=== PATIENT | female | born 1995 | race Caucasian/White ===

== ENCOUNTER 2018-06-09 23:20 | Emergency (ER) | payer MEDICAID ==
[~2018-06-09] VITALS: Ht 175.3 cm; Wt 100.0 kg
[~2018-06-09 23:20] MED LIST: CEFTIN500 MG PO; DEPO MEDROL40 MG/ML IJ; FLAGYL500 MG PO; LATUDA80 MG PO; MELATONIN5 M1 SL; MOTRIN 800800 MG/TAB PO; NORCO 325 MG-51 TAB PO; PERCOCET 325 MG1 TA2 PO; PREVACID 30MG30 M1 PO; RITALIN 20M20 MG/TAB PO; VYVANSE70 MG PO; ZOFRAN 4MG T4 MG/TAB PO
[2018-06-09 23:25] VITALS: BP 137/96; TEMP 97.3
[2018-06-10] MEDS ORDERED: CRUTCHES MC (00:25)
[2018-06-10 00:45] VITALS: PULSE 89
== END 2018-06-10 00:45 | disposition home or self-care (01) ==
LOC: COL.ER 23:20
DX: M25.551 Pain in right hip (principal); F32.9 Major depressive disorder, single episode, unspecified; F41.9 Anxiety disorder, unspecified; Z90.89 Acquired absence of other organs; Z88.8 Allergy status to other drugs, medicaments and biological substances; Z87.891 Personal history of nicotine dependence; Z87.828 Personal history of other (healed) physical injury and trauma
CPT/HCPCS: J1885; L1846

== ENCOUNTER 2018-06-15 23:43 | Emergency (ER) | payer MEDICAID ==
[~2018-06-15] VITALS: Ht 172.7 cm; Wt 131.4 kg
[~2018-06-15 23:43] MED LIST changes: +CRUTCHES MC
[2018-06-15 23:49] VITALS: BP 120/77; TEMP 98.3
[2018-06-16] MEDS ORDERED: PERCOCET 325 MG1 TA2 PO (00:56)
[2018-06-16 01:27] VITALS: PULSE 86
== END 2018-06-16 01:27 | disposition home or self-care (01) ==
LOC: COL.ER 23:43
DX: M25.561 Pain in right knee (principal); J45.909 Unspecified asthma, uncomplicated; F43.10 Post-traumatic stress disorder, unspecified; F17.210 Nicotine dependence, cigarettes, uncomplicated

== ENCOUNTER 2018-07-07 15:21 | Emergency (ER) | payer MEDICAID ==
[~2018-07-07] VITALS: Ht 175.3 cm; Wt 129.5 kg
[2018-07-07 15:31] VITALS: TEMP 99.4
[2018-07-07 15:55] LABS: COLLECTION METHOD CLEAN CATCH
[2018-07-07 16:04] LABS: MUCOUS Present /lpf; PH 7 (5-8); SQUAMOUS EPITHELIAL 0-2 /hpf; URINE APPEARANCE Clear; URINE BACTERIA None Seen /hpf; URINE BILIRUBIN Negative (NEGATIVE); URINE BLOOD Negative (NEGATIVE); URINE COLOR Straw; URINE GLUCOSE Negative (NEGATIVE); URINE KETONE Negative (NEGATIVE); URINE LEUKOCYTE ESTERASE Negative (NEGATIVE); URINE NITRATE Negative (NEGATIVE); URINE PROTEIN(semi-quant) Negative (NEGATIVE); URINE RBC 0-2 /hpf; URINE UROBILINOGEN Negative (NEGATIVE); URINE WBC 0-2 /hpf
[2018-07-07 16:10] LABS: BASO % 0.4 % (0.0-2.0); EOS # 0.1 (0.0-0.7); EOS % 0.8 % (0-4.0); GRAN # 5.6 (1.4-6.5); HEMATOCRIT 46.4 % (37.0-47.0); HEMOGLOBIN 15.2 g/dl (12.5-16.0); LYMPH # 2.5 (1.2-3.4); LYMPH % 27.3 % (20.0-51.0); MEAN CELL VOLUME 90 fl (80.0-100.0); MEAN CORPUSCULAR HEMOGLOBIN 30 pg (27.0-31.0); MEAN CORPUSCULAR HGB CONC 33 g/dl (33.0-37.0); MEAN PLATELET VOLUME 11.1 fl (7.4-10.4); MONO % 10.3 % (1.7-9.3); PLATELET COUNT 258 K/mm3 (130-400); RED BLOOD COUNT 5.13 M/mm3 (4.10-5.30); REDCELL DISTRIBUTION WIDTH-CV 12.6 % (11.5-14.5)
[2018-07-07 16:11] LABS: ALBUMIN 4.4 gm/dL (3.5-5.0); BILIRUBIN,TOTAL 0.5 mg/dL (0.0-1.0); C-REACTIVE PROTEIN 0.7 mg/dL (0.0-0.9); CALCIUM 9.8 mg/dL (8.4-10.2); CREATININE, serum 0.82 (0.52-1.25); POTASSIUM 4.3 mmol/L (3.4-5.0)
[2018-07-07] MEDS ORDERED: ZOFRAN 4MG T4 MG/TAB PO (16:35)
[2018-07-07 17:02] VITALS: BP 114/67; PULSE 77
== END 2018-07-07 17:03 | disposition home or self-care (01) ==
LOC: COL.ER 15:21
PROVIDERS: Emergency Medicine
DX: R19.7 Diarrhea, unspecified (principal); R11.10 Vomiting, unspecified; R10.9 Unspecified abdominal pain; Z90.49 Acquired absence of other specified parts of digestive tract
CPT/HCPCS: J2405; J7030

== ENCOUNTER 2018-07-29 14:12 | Emergency (ER) | payer MEDICAID ==
[~2018-07-29] VITALS: Ht 175.3 cm; Wt 127.3 kg
[2018-07-29 14:22] VITALS: TEMP 97.8
[2018-07-29] MEDS ORDERED: DEPO-PROVER150 MG/M1 IM (14:44)
[2018-07-29 17:10] VITALS: BP 104/70; PULSE 71
== END 2018-07-29 17:10 | disposition home or self-care (01) ==
LOC: COL.ER 14:12
DX: S06.0X0A Concussion without loss of consciousness, initial encounter (principal); G43.909 Migraine, unspecified, not intractable, without status migrainosus; F43.10 Post-traumatic stress disorder, unspecified; F41.9 Anxiety disorder, unspecified; F12.90 Cannabis use, unspecified, uncomplicated; R40.2412 Glasgow coma scale score 13-15, at arrival to emergency department; W18.39XA Other fall on same level, initial encounter; W22.8XXA Striking against or struck by other objects, initial encounter; Y92.009 Unspecified place in unspecified non-institutional (private) residence as the place of occurrence of the external cause
CPT/HCPCS: J1630; J1885; J2405

== ENCOUNTER 2018-07-31 10:15 | Emergency (ER) | payer MEDICAID ==
[~2018-07-31] VITALS: Ht 177.8 cm; Wt 127.8 kg
[~2018-07-31 10:15] MED LIST changes: +DEPO-PROVER150 MG/M1 IM
[2018-07-31 10:17] VITALS: TEMP 98.1
[2018-07-31 11:40] VITALS: BP 115/63; PULSE 89
== END 2018-07-31 11:41 | disposition home or self-care (01) ==
LOC: COL.ER 10:15
DX: G43.909 Migraine, unspecified, not intractable, without status migrainosus (principal)
CPT/HCPCS: J2550; J3030

== ENCOUNTER 2018-08-03 17:11 | Emergency (ER) | payer MEDICAID ==
[~2018-08-03] VITALS: Ht 177.8 cm; Wt 127.3 kg
[2018-08-03 17:22] VITALS: BP 124/74; TEMP 98.7
[2018-08-03 18:44] LABS: BASO % 0.4 % (0.0-2.0); EOS # 0.1 (0.0-0.7); EOS % 1.2 % (0-4.0); GRAN # 5.1 (1.4-6.5); GRAN % 61.8 % (42.2-75.2); HEMATOCRIT 42.6 % (37.0-47.0); LYMPH # 2.2 (1.2-3.4); LYMPH % 27.1 % (20.0-51.0); MEAN CELL VOLUME 91 fl (80.0-100.0); MEAN CORPUSCULAR HEMOGLOBIN 30 pg (27.0-31.0); MEAN CORPUSCULAR HGB CONC 33 g/dl (33.0-37.0); MEAN PLATELET VOLUME 11.2 fl (7.4-10.4); MONO # 0.8 (0.1-0.6); MONO % 9.4 % (1.7-9.3); PLATELET COUNT 220 K/mm3 (130-400); RED BLOOD COUNT 4.69 M/mm3 (4.10-5.30); REDCELL DISTRIBUTION WIDTH-CV 12.4 % (11.5-14.5)
[2018-08-03 18:49] LABS: COLLECTION METHOD CLEAN CATCH
[2018-08-03 18:56] LABS: ACETAMINOPHEN < 10 ug/mL (10-30); ALANINE AMINOTRANSFERASE 22 U/L (9-52); ALBUMIN 4.1 gm/dL (3.5-5.0); ALCOHOL(ethanol),MEDICAL < 10 mg/dL; ALKALINE PHOSPHATASE 93 U/L (50-136); ANION GAP 10 mmol/L (7-16); AST,SGOT 19 U/L (15-37); BILIRUBIN,TOTAL 0.3 mg/dL (0.0-1.0); BLOOD UREA NITROGEN 8 mg/dL (7-17); CALCIUM 9.1 mg/dL (8.4-10.2); CARBON DIOXIDE 25 mmol/L (22-30); CHLORIDE 108 mmol/L (98-107); CREATININE, serum 0.84 (0.52-1.25); GLUCOSE 89 mg/dL (74-106); SALICYLATE < 1.0 mg/dL; SODIUM 143 mmol/L (137-145); TOTAL PROTEIN 7.3 gm/dL (6.4-8.2)
[2018-08-03 18:59] LABS: MUCOUS Present /lpf; PH 7 (5-8); SQUAMOUS EPITHELIAL 0-2 /hpf; URINE APPEARANCE Clear; URINE BACTERIA None Seen /hpf; URINE BILIRUBIN Negative (NEGATIVE); URINE BLOOD Negative (NEGATIVE); URINE COLOR Straw; URINE GLUCOSE Negative (NEGATIVE); URINE KETONE Negative (NEGATIVE); URINE LEUKOCYTE ESTERASE Trace (NEGATIVE); URINE NITRATE Negative (NEGATIVE); URINE PROTEIN(semi-quant) Negative (NEGATIVE); URINE RBC 0-2 /hpf; URINE UROBILINOGEN Negative (NEGATIVE)
[2018-08-03 19:09] LABS: TRICYCLIC ANTIDEPRESS URINE NEGATIVE
[2018-08-03 19:26] LABS: TSH w REFLEX 0.976 uIU/mL (0.465-4.680)
[2018-08-03 19:45] VITALS: PULSE 95
== END 2018-08-03 19:45 | disposition home or self-care (01) ==
LOC: COL.ER 17:11
PROVIDERS: Nurse Practitioner
DX: F32.9 Major depressive disorder, single episode, unspecified (principal); F41.9 Anxiety disorder, unspecified; F12.90 Cannabis use, unspecified, uncomplicated; J45.909 Unspecified asthma, uncomplicated

== ENCOUNTER 2018-08-23 23:44 | Emergency (ER) | payer MEDICAID ==
[~2018-08-23] VITALS: Ht 175.3 cm; Wt 127.3 kg
[2018-08-23 23:57] VITALS: BP 123/72; TEMP 98.4
[2018-08-24 01:35] VITALS: PULSE 88
== END 2018-08-24 01:35 | disposition home or self-care (01) ==
LOC: COL.ER 23:44
DX: J06.9 Acute upper respiratory infection, unspecified (principal); J45.909 Unspecified asthma, uncomplicated; F41.9 Anxiety disorder, unspecified; F43.10 Post-traumatic stress disorder, unspecified; F12.10 Cannabis abuse, uncomplicated; Z90.89 Acquired absence of other organs; Z88.8 Allergy status to other drugs, medicaments and biological substances

== ENCOUNTER 2018-09-15 11:22 | Emergency (ER) | payer MEDICAID ==
[~2018-09-15] VITALS: Ht 172.7 cm; Wt 126.4 kg
[2018-09-15 11:24] VITALS: TEMP 97.7
[2018-09-15] MEDS ORDERED: AMOXICILLIN875 MG PO (11:40)
[2018-09-15] MEDS ORDERED: CORTISPORIN OTI10 ML OT (11:40)
[2018-09-15 11:42] VITALS: BP 149/92; PULSE 76
== END 2018-09-15 11:51 | disposition home or self-care (01) ==
LOC: COL.ER 11:22
DX: H60.502 Unspecified acute noninfective otitis externa, left ear (principal); H66.93 Otitis media, unspecified, bilateral; F12.90 Cannabis use, unspecified, uncomplicated; F41.9 Anxiety disorder, unspecified; F43.10 Post-traumatic stress disorder, unspecified; Z87.891 Personal history of nicotine dependence

== ENCOUNTER 2018-09-17 01:16 | Emergency (ER) | payer MEDICAID ==
[~2018-09-17] VITALS: Ht 175.3 cm; Wt 126.8 kg
[~2018-09-17 01:16] MED LIST changes: +AMOXICILLIN875 MG PO; +CORTISPORIN OTI10 ML OT
[2018-09-17 01:25] VITALS: BP 128/77; TEMP 98.3
[2018-09-17 02:12] VITALS: PULSE 91
== END 2018-09-17 02:12 | disposition home or self-care (01) ==
LOC: COL.ER 01:16
DX: H60.393 Other infective otitis externa, bilateral (principal)
CPT/HCPCS: J1885; J8540

== ENCOUNTER 2018-09-27 17:18 | Emergency (ER) | payer MEDICAID ==
[~2018-09-27] VITALS: Ht 175.3 cm; Wt 128.2 kg
[2018-09-27 17:30] VITALS: BP 137/88
[2018-09-27] MEDS ORDERED: CIPRODEX OT (17:47)
[2018-09-27 18:00] VITALS: PULSE 93; TEMP 98
[2018-09-28] MEDS ORDERED: MOTRIN 800800 MG/TAB PO (06:31)
[2018-09-28] MEDS ORDERED: NORCO 325 MG-51 TAB PO (07:12)
[2018-09-28] MEDS ORDERED: CIPRO 500MG TA500 MG PO (07:12)
== END 2018-09-27 18:01 | disposition home or self-care (01) ==
LOC: COL.ER 17:18
DX: H66.93 Otitis media, unspecified, bilateral (principal)

== ENCOUNTER 2018-09-28 06:01 | Emergency (ER) | payer MEDICAID ==
[~2018-09-28] VITALS: Ht 175.3 cm; Wt 128.2 kg
[~2018-09-28 06:01] MED LIST changes: +CIPRODEX OT
[2018-09-28 06:08] VITALS: BP 120/79
[2018-09-28] MEDS ORDERED: MOTRIN 800800 MG/TAB PO (06:31)
[2018-09-28] MEDS ORDERED: NORCO 325 MG-51 TAB PO (07:12)
[2018-09-28] MEDS ORDERED: CIPRO 500MG TA500 MG PO (07:12)
[2018-09-28 07:53] VITALS: PULSE 66; TEMP 97.5
== END 2018-09-28 07:53 | disposition home or self-care (01) ==
LOC: COL.ER 06:01
DX: H60.93 Unspecified otitis externa, bilateral (principal)

== ENCOUNTER 2018-11-30 21:13 | Emergency (ER) | payer MEDICAID ==
[~2018-11-30] VITALS: Ht 175.3 cm; Wt 123.6 kg
[~2018-11-30 21:13] MED LIST changes: +CIPRO 500MG TA500 MG PO
[2018-11-30 21:23] VITALS: BP 109/73; TEMP 98.6
[2018-11-30] MEDS ORDERED: TUMS500 MG (21:36)
[2018-11-30] MEDS ORDERED: IBU600 MG PO (21:36)
[2018-11-30 22:06] LABS: BASO # 0.1 (0.0-0.2); BASO % 0.6 % (0.0-2.0); EOS # 0.1 (0.0-0.7); EOS % 1.1 % (0-4.0); GRAN % 54.5 % (42.2-75.2); HEMATOCRIT 44.1 % (37.0-47.0); HEMOGLOBIN 14.7 g/dl (12.5-16.0); LYMPH # 3.1 (1.2-3.4); LYMPH % 34.3 % (20.0-51.0); MEAN CELL VOLUME 90 fl (80.0-100.0); MEAN CORPUSCULAR HEMOGLOBIN 30 pg (27.0-31.0); MEAN CORPUSCULAR HGB CONC 33 g/dl (33.0-37.0); MEAN PLATELET VOLUME 10.8 fl (7.4-10.4); MONO # 0.8 (0.1-0.6); MONO % 9.2 % (1.7-9.3); PLATELET COUNT 254 K/mm3 (130-400); RED BLOOD COUNT 4.88 M/mm3 (4.10-5.30); REDCELL DISTRIBUTION WIDTH-CV 12.5 % (11.5-14.5)
[2018-11-30 22:16] LABS: ALBUMIN 4.6 gm/dL (3.5-5.0); BILIRUBIN,TOTAL 0.4 mg/dL (0.0-1.0); CALCIUM 9.3 mg/dL (8.4-10.2); CREATININE, serum 0.77 (0.52-1.25); POTASSIUM 3.5 mmol/L (3.4-5.0)
[2018-11-30 23:20] VITALS: PULSE 92
== END 2018-11-30 23:29 | disposition home or self-care (01) ==
LOC: COL.ER 21:13
PROVIDERS: Emergency Medicine
DX: A05.9 Bacterial foodborne intoxication, unspecified (principal)
CPT/HCPCS: J0780; J7030

== ENCOUNTER 2018-12-10 02:31 | Emergency (ER) | payer MEDICAID ==
[~2018-12-10] VITALS: Wt 122.7 kg
[~2018-12-10 02:31] MED LIST changes: +IBU600 MG PO; +TUMS500 MG
[2018-12-10 02:42] VITALS: TEMP 98.6
[2018-12-10] MEDS ORDERED: ZOFRAN ODT4 MG PO (03:51)
[2018-12-10] MEDS ORDERED: PROTONIX 40MG T40 MG PO (03:51)
[2018-12-10] MEDS ORDERED: CARAFATE 1GM1 G PO (03:51)
[2018-12-10 04:34] VITALS: BP 125/87; PULSE 87
== END 2018-12-10 04:31 | disposition home or self-care (01) ==
LOC: COL.ER 02:31
DX: K22.6 Gastro-esophageal laceration-hemorrhage syndrome (principal); F43.10 Post-traumatic stress disorder, unspecified; F17.210 Nicotine dependence, cigarettes, uncomplicated; Z90.89 Acquired absence of other organs

== ENCOUNTER 2018-12-30 15:07 | Emergency (ER) | payer MEDICAID ==
[~2018-12-30] VITALS: Ht 175.3 cm; Wt 113.6 kg
[~2018-12-30 15:07] MED LIST changes: +CARAFATE 1GM1 G PO; +PROTONIX 40MG T40 MG PO; +ZOFRAN ODT4 MG PO
[2018-12-30 15:09] VITALS: BP 118/80; TEMP 97.6
[2018-12-30 16:06] LABS: STREP SCREEN NEGATIVE
[2018-12-30] MEDS ORDERED: ZITHROMAX 250M250 MG PO (16:14)
[2018-12-30] MEDS ORDERED: NEB MC (16:14)
[2018-12-30] MEDS ORDERED: PREDNISONE20 MG PO (16:14)
[2018-12-30] MEDS ORDERED: IPRATROPIUM BROM3 M1 IH (16:14)
[2018-12-30 16:29] VITALS: PULSE 98
== END 2018-12-30 16:30 | disposition home or self-care (01) ==
LOC: COL.ER 15:07
PROVIDERS: Emergency Medicine
DX: J45.909 Unspecified asthma, uncomplicated (principal); F17.210 Nicotine dependence, cigarettes, uncomplicated
CPT/HCPCS: J7512

== ENCOUNTER 2019-01-17 22:16 | Emergency (ER) | payer MEDICAID ==
[~2019-01-17] VITALS: Ht 175.3 cm; Wt 118.0 kg
[~2019-01-17 22:16] MED LIST changes: +IPRATROPIUM BROM3 M1 IH; +NEB MC; +PREDNISONE20 MG PO; +ZITHROMAX 250M250 MG PO
[2019-01-17 22:27] VITALS: TEMP 98.1
[2019-01-18 00:34] LABS: BASO # 0.1 (0.0-0.2); BASO % 0.5 % (0.0-2.0); EOS # 0.2 (0.0-0.7); EOS % 1.5 % (0-4.0); GRAN # 5.4 (1.4-6.5); GRAN % 53.1 % (42.2-75.2); HEMATOCRIT 41.1 % (37.0-47.0); HEMOGLOBIN 13.5 g/dl (12.5-16.0); LYMPH # 3.6 (1.2-3.4); LYMPH % 35.2 % (20.0-51.0); MEAN CELL VOLUME 92 fl (80.0-100.0); MEAN CORPUSCULAR HEMOGLOBIN 30 pg (27.0-31.0); MEAN CORPUSCULAR HGB CONC 33 g/dl (33.0-37.0); MEAN PLATELET VOLUME 10.5 fl (7.4-10.4); MONO % 9.3 % (1.7-9.3); PLATELET COUNT 235 K/mm3 (130-400); RED BLOOD COUNT 4.45 M/mm3 (4.10-5.30); REDCELL DISTRIBUTION WIDTH-CV 12.6 % (11.5-14.5)
[2019-01-18 00:45] LABS: ACETAMINOPHEN < 10 ug/mL (10-30); ALANINE AMINOTRANSFERASE 22 U/L (9-52); ALBUMIN 3.9 gm/dL (3.5-5.0); ALKALINE PHOSPHATASE 91 U/L (50-136); ANION GAP 7 mmol/L (7-16); AST,SGOT 12 U/L (15-37); BILIRUBIN,TOTAL 0.1 mg/dL (0.0-1.0); BLOOD UREA NITROGEN 14 mg/dL (7-17); CALCIUM 8.8 mg/dL (8.4-10.2); CARBON DIOXIDE 26 mmol/L (22-30); CHLORIDE 107 mmol/L (98-107); CREATININE, serum 0.89 (0.52-1.25); GLUCOSE 101 mg/dL (74-106); POTASSIUM 4.2 mmol/L (3.4-5.0); SALICYLATE < 1.0 mg/dL; SODIUM 139 mmol/L (137-145); TOTAL PROTEIN 6.7 gm/dL (6.4-8.2)
[2019-01-18 00:55] LABS: COLLECTION METHOD CLEAN CATCH
[2019-01-18 01:01] LABS: MUCOUS Present /lpf; PH 7 (5-8); SQUAMOUS EPITHELIAL 0-2 /hpf; URINE APPEARANCE Clear; URINE BACTERIA None Seen /hpf; URINE BILIRUBIN Negative (NEGATIVE); URINE BLOOD Negative (NEGATIVE); URINE COLOR Yellow; URINE GLUCOSE Negative (NEGATIVE); URINE KETONE Negative (NEGATIVE); URINE LEUKOCYTE ESTERASE Negative (NEGATIVE); URINE NITRATE Negative (NEGATIVE); URINE PROTEIN(semi-quant) Negative (NEGATIVE); URINE RBC 0-2 /hpf; URINE UROBILINOGEN Negative (NEGATIVE)
[2019-01-18 01:08] LABS: TRICYCLIC ANTIDEPRESS URINE NEGATIVE
[2019-01-18 01:40] VITALS: BP 124/70; PULSE 81
== END 2019-01-18 01:40 | disposition home or self-care (01) ==
LOC: COL.ER 22:16
PROVIDERS: Nurse Practitioner
DX: F32.9 Major depressive disorder, single episode, unspecified (principal); F41.9 Anxiety disorder, unspecified; J45.909 Unspecified asthma, uncomplicated; F43.10 Post-traumatic stress disorder, unspecified; F17.210 Nicotine dependence, cigarettes, uncomplicated; Z90.49 Acquired absence of other specified parts of digestive tract; Z90.89 Acquired absence of other organs

== ENCOUNTER 2019-03-17 16:00 | Emergency (ER) | payer MEDICAID ==
[~2019-03-17] VITALS: Ht 175.3 cm; Wt 113.6 kg
[2019-03-17 16:05] VITALS: BP 120/74; PULSE 103; TEMP 97.6
[2019-03-17] MEDS ORDERED: NORCO 325 MG-51 TAB PO (16:54)
== END 2019-03-17 17:13 | disposition home or self-care (01) ==
LOC: COL.ER 16:00
DX: S93.401A Sprain of unspecified ligament of right ankle, initial encounter (principal); S83.91XA Sprain of unspecified site of right knee, initial encounter; J45.909 Unspecified asthma, uncomplicated; F32.9 Major depressive disorder, single episode, unspecified; X50.1XXA Overexertion from prolonged static or awkward postures, initial encounter; Y92.009 Unspecified place in unspecified non-institutional (private) residence as the place of occurrence of the external cause

== ENCOUNTER 2019-09-08 14:16 | Emergency (ER) | payer MEDICAID ==
[~2019-09-08] VITALS: Ht 177.8 cm; Wt 135.0 kg
[~2019-09-08 14:16] MED LIST changes: +ADDERALL30 MG PO; +CIPRO 500M500 MG/5 M PO; +DOXYCYCLINE 10100 MG PO; +ELIMITE TOP
[2019-09-08 14:24] VITALS: TEMP 98.3
[2019-09-08] MEDS ORDERED: LATUDA40 MG PO (14:24)
[2019-09-08 15:03] LABS: BASO # 0.1 (0.0-0.2); BASO % 0.5 % (0.0-2.0); EOS # 0.1 (0.0-0.7); EOS % 0.6 % (0-4.0); GRAN # 6.4 (1.4-6.5); GRAN % 62.5 % (42.2-75.2); HEMATOCRIT 44.2 % (37.0-47.0); HEMOGLOBIN 14.8 g/dl (12.5-16.0); LYMPH # 2.9 (1.2-3.4); LYMPH % 27.8 % (20.0-51.0); MEAN CELL VOLUME 89 fl (80.0-100.0); MEAN CORPUSCULAR HEMOGLOBIN 30 pg (27.0-31.0); MEAN CORPUSCULAR HGB CONC 34 g/dl (33.0-37.0); MEAN PLATELET VOLUME 10.6 fl (7.4-10.4); MONO # 0.9 (0.1-0.6); MONO % 8.3 % (1.7-9.3); PLATELET COUNT 241 K/mm3 (130-400); RED BLOOD COUNT 4.98 M/mm3 (4.10-5.30); REDCELL DISTRIBUTION WIDTH-CV 12.1 % (11.5-14.5)
[2019-09-08 15:12] LABS: ALANINE AMINOTRANSFERASE 24 U/L (4-34); ALBUMIN 4.5 gm/dL (3.5-5.0); ALKALINE PHOSPHATASE 101 U/L (50-136); ANION GAP 8 mmol/L (7-16); AST,SGOT 18 U/L (15-37); BILIRUBIN,TOTAL 0.8 mg/dL (0.0-1.0); BLOOD UREA NITROGEN 12 mg/dL (7-17); CALCIUM 9.8 mg/dL (8.4-10.2); CARBON DIOXIDE 24 mmol/L (22-30); CHLORIDE 104 mmol/L (98-107); CREATININE, serum 0.77 (0.52-1.25); GLUCOSE 93 mg/dL (74-106); POTASSIUM 4.1 mmol/L (3.4-5.0); SODIUM 135 mmol/L (137-145); TOTAL PROTEIN 7.9 gm/dL (6.4-8.2)
[2019-09-08 15:16] LABS: ACETAMINOPHEN < 10 ug/mL (10-30); ALCOHOL(ethanol),MEDICAL < 10 mg/dL; SALICYLATE < 1.0 mg/dL
[2019-09-08 16:03] LABS: COLLECTION METHOD CLEAN CATCH
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
[2019-09-08 16:10] LABS: MUCOUS Present /lpf; PH 6 (5-8); SQUAMOUS EPITHELIAL 0-2 /hpf; URINE APPEARANCE Clear; URINE BACTERIA None Seen /hpf; URINE BILIRUBIN Negative (NEGATIVE); URINE BLOOD Negative (NEGATIVE); URINE COLOR Yellow; URINE GLUCOSE Negative (NEGATIVE); URINE KETONE 1+ (NEGATIVE); URINE LEUKOCYTE ESTERASE Negative (NEGATIVE); URINE NITRATE Negative (NEGATIVE); URINE PROTEIN(semi-quant) Negative (NEGATIVE); URINE RBC 0-2 /hpf; URINE UROBILINOGEN Negative (NEGATIVE)
[2019-09-08 16:20] LABS: TRICYCLIC ANTIDEPRESS URINE NEGATIVE
[2019-09-09 07:30] VITALS: BP 160/87; PULSE 92
== END 2019-09-09 07:30 ==
LOC: COL.ER 14:16
PROVIDERS: Physician Assistant
DX: R45.851 Suicidal ideations (principal); F32.9 Major depressive disorder, single episode, unspecified; T76.21XA Adult sexual abuse, suspected, initial encounter; F90.9 Attention-deficit hyperactivity disorder, unspecified type; F43.10 Post-traumatic stress disorder, unspecified; Z90.89 Acquired absence of other organs

== ENCOUNTER 2019-10-09 16:50 | Emergency (ER) | payer MEDICAID ==
[~2019-10-09] VITALS: Ht 175.3 cm; Wt 135.0 kg
[~2019-10-09 16:50] MED LIST changes: +LATUDA40 MG PO
[2019-10-09 16:59] VITALS: BP 115/81; PULSE 95
[2019-10-09 19:45] VITALS: TEMP 98.2
== END 2019-10-09 19:42 | disposition home or self-care (01) ==
LOC: COL.ER 16:50
DX: S62.609A Fracture of unspecified phalanx of unspecified finger, initial encounter for closed fracture (principal); F32.9 Major depressive disorder, single episode, unspecified; Z88.7 Allergy status to serum and vaccine; Z88.8 Allergy status to other drugs, medicaments and biological substances; Z90.49 Acquired absence of other specified parts of digestive tract; Y93.72 Activity, wrestling

== ENCOUNTER → 2019-10-11 | Emergency (ER) | payer MEDICAID | LOC: COL.ER 20:18 | DX: Z72.9 Problem related to lifestyle, unspecified (principal) ==

== ENCOUNTER 2019-10-30 23:33 | Emergency (ER) | payer MEDICAID ==
[~2019-10-30] VITALS: Ht 175.3 cm; Wt 131.8 kg
[2019-10-30 23:40] VITALS: BP 107/73; TEMP 98.9
[2019-10-31 00:17] VITALS: PULSE 66
== END 2019-10-31 00:17 | disposition home or self-care (01) ==
LOC: COL.ER 23:33
DX: S63.637D Sprain of interphalangeal joint of left little finger, subsequent encounter (principal); F90.9 Attention-deficit hyperactivity disorder, unspecified type; Z88.8 Allergy status to other drugs, medicaments and biological substances

== ENCOUNTER 2019-11-21 05:12 | Emergency (ER) | payer MEDICAID ==
[~2019-11-21] VITALS: Ht 175.3 cm; Wt 135.0 kg
[2019-11-21 05:20] VITALS: BP 110/61; TEMP 97.7
[2019-11-21] MEDS ORDERED: LEXAPRO 5MG5 MG (05:39)
[2019-11-21] MEDS ORDERED: ZYPREXA 5MG5 MG (05:40)
[2019-11-21 07:07] VITALS: PULSE 74
== END 2019-11-21 07:07 | disposition home or self-care (01) ==
LOC: COL.ER 05:12
DX: S06.0X0A Concussion without loss of consciousness, initial encounter (principal); R40.2410 Glasgow coma scale score 13-15, unspecified time; Z88.8 Allergy status to other drugs, medicaments and biological substances; W22.8XXA Striking against or struck by other objects, initial encounter; Y93.72 Activity, wrestling
CPT/HCPCS: J1885; J3030

== ENCOUNTER 2019-12-16 21:46 | Emergency (ER) | payer MEDICAID ==
[~2019-12-16] VITALS: Ht 175.3 cm; Wt 133.6 kg
[~2019-12-16 21:46] MED LIST changes: +LEXAPRO 5MG5 MG; +ZYPREXA 5MG5 MG
[2019-12-16 22:05] VITALS: BP 106/66; PULSE 101; TEMP 98.5
== END 2019-12-17 00:15 | disposition left against medical advice (07) ==
LOC: COL.ER 21:46
DX: S91.311A Laceration without foreign body, right foot, initial encounter (principal); W25.XXXA Contact with sharp glass, initial encounter; Z53.21 Procedure and treatment not carried out due to patient leaving prior to being seen by health care provider

== ENCOUNTER 2019-12-23 23:08 | Emergency (ER) | payer MEDICAID ==
[~2019-12-23] VITALS: Ht 175.3 cm; Wt 132.7 kg
[2019-12-24 00:57] VITALS: BP 144/70; PULSE 78; TEMP 98.7
== END 2019-12-24 00:58 | disposition home or self-care (01) ==
LOC: COL.ER 23:08
DX: S63.601A Unspecified sprain of right thumb, initial encounter (principal); Z88.7 Allergy status to serum and vaccine; Z88.8 Allergy status to other drugs, medicaments and biological substances; Z91.09 Other allergy status, other than to drugs and biological substances; X50.0XXA Overexertion from strenuous movement or load, initial encounter; Y99.0 Civilian activity done for income or pay

== ENCOUNTER 2019-12-29 01:26 | Emergency (ER) | payer MEDICAID ==
[~2019-12-29] VITALS: Ht 175.3 cm; Wt 132.7 kg
[2019-12-29 01:31] VITALS: TEMP 99.1
[2019-12-29 01:54] LABS: BASO # 0.1 (0.0-0.2); BASO % 0.3 % (0.0-2.0); EOS # 0.1 (0.0-0.7); EOS % 0.3 % (0-4.0); GRAN # 12.6 (1.4-6.5); GRAN % 74.1 % (42.2-75.2); HEMATOCRIT 45.6 % (37.0-47.0); HEMOGLOBIN 15.1 g/dl (12.5-16.0); LYMPH # 2.8 (1.2-3.4); LYMPH % 16.3 % (20.0-51.0); MEAN CELL VOLUME 89 fl (80.0-100.0); MEAN CORPUSCULAR HEMOGLOBIN 30 pg (27.0-31.0); MEAN CORPUSCULAR HGB CONC 33 g/dl (33.0-37.0); MONO # 1.5 (0.1-0.6); MONO % 8.6 % (1.7-9.3); PLATELET COUNT 289 K/mm3 (130-400); REDCELL DISTRIBUTION WIDTH-CV 12.1 % (11.5-14.5)
[2019-12-29 02:05] LABS: ALBUMIN 4.7 gm/dL (3.5-5.0); BILIRUBIN,TOTAL 0.6 mg/dL (0.0-1.0); C-REACTIVE PROTEIN 4.6 mg/dL (0.0-0.9); CALCIUM 9.6 mg/dL (8.4-10.2); CREATININE, serum 0.92 (0.52-1.25); POTASSIUM 4.6 mmol/L (3.4-5.0); TOTAL PROTEIN 8.6 gm/dL (6.4-8.2)
[2019-12-29 02:54] LABS: COLLECTION METHOD CLEAN CATCH
[2019-12-29] MEDS ORDERED: CEFTIN500 MG PO (02:56)
[2019-12-29 03:02] LABS: MUCOUS Present /lpf; PH 6 (5-8); SQUAMOUS EPITHELIAL 0-2 /hpf; URINE APPEARANCE Clear; URINE BACTERIA None Seen /hpf; URINE BILIRUBIN Negative (NEGATIVE); URINE BLOOD 1+ (NEGATIVE); URINE COLOR Straw; URINE GLUCOSE Negative (NEGATIVE); URINE KETONE 1+ (NEGATIVE); URINE LEUKOCYTE ESTERASE Negative (NEGATIVE); URINE NITRATE Negative (NEGATIVE); URINE PROTEIN(semi-quant) Negative (NEGATIVE); URINE UROBILINOGEN Negative (NEGATIVE)
[2019-12-29 03:09] VITALS: BP 125/74; PULSE 90
== END 2019-12-29 03:28 | disposition home or self-care (01) ==
LOC: COL.ER 01:26
PROVIDERS: Nurse Practitioner Primary Care
DX: N12 Tubulo-interstitial nephritis, not specified as acute or chronic (principal); F17.210 Nicotine dependence, cigarettes, uncomplicated; Z90.49 Acquired absence of other specified parts of digestive tract; Z88.8 Allergy status to other drugs, medicaments and biological substances
CPT/HCPCS: J0696; J1170; J2405; J3010; J7030; Q9967

== ENCOUNTER 2020-03-12 16:48 | Emergency (ER) | payer MEDICAID ==
[~2020-03-12] VITALS: Ht 175.3 cm; Wt 130.5 kg
[2020-03-12 16:59] VITALS: BP 117/80; TEMP 97.7
[2020-03-12 17:28] LABS: BASO # 0.1 (0.0-0.2); BASO % 0.5 % (0.0-2.0); EOS # 0.1 (0.0-0.7); EOS % 0.8 % (0-4.0); GRAN # 5.9 (1.4-6.5); GRAN % 64.1 % (42.2-75.2); HEMATOCRIT 42.8 % (37.0-47.0); HEMOGLOBIN 14.2 g/dl (12.5-16.0); LYMPH # 2.3 (1.2-3.4); LYMPH % 25.1 % (20.0-51.0); MEAN CELL VOLUME 88 fl (80.0-100.0); MEAN CORPUSCULAR HEMOGLOBIN 29 pg (27.0-31.0); MEAN CORPUSCULAR HGB CONC 33 g/dl (33.0-37.0); MEAN PLATELET VOLUME 10.6 fl (7.4-10.4); MONO # 0.9 (0.1-0.6); MONO % 9.2 % (1.7-9.3); PLATELET COUNT 280 K/mm3 (130-400); RED BLOOD COUNT 4.85 M/mm3 (4.10-5.30); REDCELL DISTRIBUTION WIDTH-CV 12.4 % (11.5-14.5)
[2020-03-12 17:41] LABS: ALBUMIN 4.3 gm/dL (3.5-5.0); BILIRUBIN,TOTAL 0.5 mg/dL (0.0-1.0); C-REACTIVE PROTEIN 1.2 mg/dL (0.0-0.9); CALCIUM 9.4 mg/dL (8.4-10.2); CREATININE, serum 0.9 (0.52-1.25); POTASSIUM 3.9 mmol/L (3.4-5.0); TOTAL PROTEIN 7.4 gm/dL (6.4-8.2)
[2020-03-12 19:52] LABS: COLLECTION METHOD CLEAN CATCH
[2020-03-12 19:59] LABS: MUCOUS Present /lpf; PH 6 (5-8); SQUAMOUS EPITHELIAL 0-2 /hpf; URINE APPEARANCE Clear; URINE BACTERIA None Seen /hpf; URINE BILIRUBIN Negative (NEGATIVE); URINE BLOOD 3+ (NEGATIVE); URINE COLOR Yellow; URINE GLUCOSE Negative (NEGATIVE); URINE KETONE Trace (NEGATIVE); URINE LEUKOCYTE ESTERASE Negative (NEGATIVE); URINE NITRATE Negative (NEGATIVE); URINE PROTEIN(semi-quant) Negative (NEGATIVE); URINE RBC >50 /hpf
[2020-03-12 21:19] VITALS: PULSE 75
== END 2020-03-12 21:07 | disposition home or self-care (01) ==
LOC: COL.ER 16:48
PROVIDERS: Nurse Practitioner Primary Care
DX: R19.7 Diarrhea, unspecified (principal); R10.10 Upper abdominal pain, unspecified; R11.0 Nausea; F43.10 Post-traumatic stress disorder, unspecified; F32.9 Major depressive disorder, single episode, unspecified; F41.9 Anxiety disorder, unspecified; F90.9 Attention-deficit hyperactivity disorder, unspecified type; J45.909 Unspecified asthma, uncomplicated; F17.200 Nicotine dependence, unspecified, uncomplicated; Z90.49 Acquired absence of other specified parts of digestive tract; Z32.02 Encounter for pregnancy test, result negative; Z88.8 Allergy status to other drugs, medicaments and biological substances
CPT/HCPCS: J2405; J7030

== ENCOUNTER 2020-04-11 22:56 | Emergency (ER) | payer MEDICAID ==
[~2020-04-11] VITALS: Ht 175.3 cm; Wt 100.0 kg
[2020-04-11 23:07] VITALS: TEMP 98.7
[2020-04-12 00:26] VITALS: BP 125/66; PULSE 90
== END 2020-04-12 01:54 | disposition home or self-care (01) ==
LOC: COL.ER 22:56
DX: R51.9 Headache, unspecified (principal); R19.7 Diarrhea, unspecified; R53.83 Other fatigue; F32.9 Major depressive disorder, single episode, unspecified; F41.9 Anxiety disorder, unspecified; F90.9 Attention-deficit hyperactivity disorder, unspecified type; F43.10 Post-traumatic stress disorder, unspecified; Z20.822 Contact with and (suspected) exposure to COVID-19; Z90.49 Acquired absence of other specified parts of digestive tract; Z87.891 Personal history of nicotine dependence; Z88.8 Allergy status to other drugs, medicaments and biological substances
CPT/HCPCS: J1885

== ENCOUNTER 2020-05-02 17:23 | Emergency (ER) | payer MEDICAID ==
[~2020-05-02] VITALS: Ht 175.3 cm; Wt 132.7 kg
[2020-05-02 18:37] LABS: COLLECTION METHOD CLEAN CATCH
[2020-05-02 18:45] LABS: BASO # 0.1 (0.0-0.2); BASO % 0.5 % (0.0-2.0); EOS # 0.1 (0.0-0.7); EOS % 0.8 % (0-4.0); GRAN # 7.7 (1.4-6.5); GRAN % 66.7 % (42.2-75.2); HEMATOCRIT 43.1 % (37.0-47.0); HEMOGLOBIN 14.1 g/dl (12.5-16.0); LYMPH # 2.9 (1.2-3.4); LYMPH % 24.8 % (20.0-51.0); MEAN CELL VOLUME 91 fl (80.0-100.0); MEAN CORPUSCULAR HEMOGLOBIN 30 pg (27.0-31.0); MEAN CORPUSCULAR HGB CONC 33 g/dl (33.0-37.0); MEAN PLATELET VOLUME 10.9 fl (7.4-10.4); MONO # 0.8 (0.1-0.6); MONO % 6.9 % (1.7-9.3); PLATELET COUNT 257 K/mm3 (130-400); RED BLOOD COUNT 4.76 M/mm3 (4.10-5.30); REDCELL DISTRIBUTION WIDTH-CV 12.4 % (11.5-14.5)
[2020-05-02 18:49] LABS: MUCOUS Present /lpf; PH 6 (5-8); SQUAMOUS EPITHELIAL 0-2 /hpf; URINE APPEARANCE Clear; URINE BACTERIA Rare /hpf; URINE BILIRUBIN Negative (NEGATIVE); URINE BLOOD Negative (NEGATIVE); URINE COLOR Yellow; URINE GLUCOSE Negative (NEGATIVE); URINE KETONE Negative (NEGATIVE); URINE LEUKOCYTE ESTERASE Negative (NEGATIVE); URINE NITRATE Negative (NEGATIVE); URINE PROTEIN(semi-quant) Negative (NEGATIVE); URINE RBC 0-2 /hpf; URINE UROBILINOGEN Negative (NEGATIVE)
[2020-05-02 19:08] LABS: ALANINE AMINOTRANSFERASE 24 U/L (4-34); ALBUMIN 4.2 gm/dL (3.5-5.0); ALKALINE PHOSPHATASE 83 U/L (50-136); ANION GAP 7 mmol/L (7-16); AST,SGOT 19 U/L (15-37); BILIRUBIN,TOTAL 0.5 mg/dL (0.0-1.0); BLOOD UREA NITROGEN 11 mg/dL (7-17); CALCIUM 9.2 mg/dL (8.4-10.2); CARBON DIOXIDE 27 mmol/L (22-30); CHLORIDE 106 mmol/L (98-107); CREATININE, serum 0.91 (0.52-1.25); GLUCOSE 119 mg/dL (74-106); SODIUM 140 mmol/L (137-145); TOTAL PROTEIN 7.4 gm/dL (6.4-8.2)
[2020-05-02 19:11] LABS: TRICYCLIC ANTIDEPRESS URINE NEGATIVE
[2020-05-02 19:14] LABS: ACETAMINOPHEN < 10 ug/mL (10-30); ALCOHOL(ethanol),MEDICAL < 10 mg/dL; SALICYLATE < 1.0 mg/dL
[2020-05-03 07:31] VITALS: TEMP 97.8
[2020-05-03] MEDS ORDERED: ADDERALL XR30 MG PO (12:08)
[2020-05-03] MEDS ORDERED: ZYPREXA 5MG5 MG PO (12:09)
[2020-05-03] MEDS ORDERED: LEXAPRO20 MG PO (12:09)
[2020-05-03 17:11] VITALS: BP 137/70; PULSE 94
== END 2020-05-03 17:11 ==
LOC: COL.ER 17:23
PROVIDERS: Nurse Practitioner
DX: F41.9 Anxiety disorder, unspecified (principal); F31.9 Bipolar disorder, unspecified; F90.9 Attention-deficit hyperactivity disorder, unspecified type; Z20.822 Contact with and (suspected) exposure to COVID-19; Z88.8 Allergy status to other drugs, medicaments and biological substances; Z88.7 Allergy status to serum and vaccine

== ENCOUNTER 2020-07-08 15:39 | Emergency (ER) | payer MEDICAID ==
[~2020-07-08] VITALS: Ht 175.3 cm; Wt 132.7 kg
[~2020-07-08 15:39] MED LIST changes: +ADDERALL XR30 MG PO; +LEXAPRO20 MG PO; +ZYPREXA 5MG5 MG PO
[2020-07-08 15:55] VITALS: TEMP 98.4
[2020-07-08] MEDS ORDERED: MELATONIN5 M1 SL (16:07)
[2020-07-08] MEDS ORDERED: AMBIEN 5MG TABLE5 MG PO (16:08)
[2020-07-08 17:41] VITALS: BP 109/63; PULSE 77
== END 2020-07-08 17:43 | disposition home or self-care (01) ==
LOC: COL.ER 15:39
DX: L50.0 Allergic urticaria (principal); F31.9 Bipolar disorder, unspecified; F41.9 Anxiety disorder, unspecified; F90.9 Attention-deficit hyperactivity disorder, unspecified type; Z88.7 Allergy status to serum and vaccine; Z88.8 Allergy status to other drugs, medicaments and biological substances; Z87.891 Personal history of nicotine dependence
CPT/HCPCS: J2930; J7030

== ENCOUNTER 2020-07-08 23:39 | Emergency (ER) | payer MEDICAID ==
[~2020-07-08] VITALS: Ht 170.2 cm; Wt 113.6 kg
[~2020-07-08 23:39] MED LIST changes: +AMBIEN 5MG TABLE5 MG PO
[2020-07-09 00:31] VITALS: BP 118/86; PULSE 79; TEMP 98.7
== END 2020-07-09 00:31 | disposition home or self-care (01) ==
LOC: COL.ER 23:39
DX: L50.0 Allergic urticaria (principal); H10.32 Unspecified acute conjunctivitis, left eye; F31.9 Bipolar disorder, unspecified; F41.9 Anxiety disorder, unspecified; F90.9 Attention-deficit hyperactivity disorder, unspecified type; F17.210 Nicotine dependence, cigarettes, uncomplicated

== ENCOUNTER 2020-10-08 18:48 | Emergency (ER) | payer MEDICAID | END 2020-10-08 19:20 | disposition left against medical advice (07) | LOC: COL.ER 18:48 | DX: R52 Pain, unspecified (principal) ==

== ENCOUNTER 2020-10-13 15:23 | Emergency (ER) | payer MEDICAID ==
[~2020-10-13] VITALS: Ht 175.3 cm; Wt 132.3 kg
[2020-10-13 15:50] VITALS: BP 113/67; PULSE 95; TEMP 98.3
[2020-10-13] MEDS ORDERED: BACTRIM DS 8001 TAB PO (16:31)
== END 2020-10-13 17:00 | disposition home or self-care (01) ==
LOC: COL.ER 15:23
DX: H01.006 Unspecified blepharitis left eye, unspecified eyelid (principal); L01.00 Impetigo, unspecified; F32.9 Major depressive disorder, single episode, unspecified; F41.9 Anxiety disorder, unspecified; F90.9 Attention-deficit hyperactivity disorder, unspecified type; F43.10 Post-traumatic stress disorder, unspecified; Z79.899 Other long term (current) drug therapy

== ENCOUNTER 2020-11-02 01:38 | Emergency (ER) | payer MEDICAID ==
[~2020-11-02] VITALS: Ht 175.3 cm; Wt 131.8 kg
[~2020-11-02 01:38] MED LIST changes: +BACTRIM DS 8001 TAB PO
[2020-11-02 01:51] VITALS: TEMP 97.2
[2020-11-02 02:13] LABS: BASO # 0.1 (0.0-0.2); BASO % 0.4 % (0.0-2.0); EOS # 0.2 (0.0-0.7); EOS % 1.4 % (0-4.0); GRAN # 6.5 (1.4-6.5); GRAN % 54.8 % (42.2-75.2); HEMATOCRIT 44.4 % (37.0-47.0); HEMOGLOBIN 14.8 g/dl (12.5-16.0); MEAN CELL VOLUME 89 fl (80.0-100.0); MEAN CORPUSCULAR HEMOGLOBIN 30 pg (27.0-31.0); MEAN CORPUSCULAR HGB CONC 33 g/dl (33.0-37.0); MEAN PLATELET VOLUME 10.9 fl (7.4-10.4); MONO # 1.1 (0.1-0.6); MONO % 9.1 % (1.7-9.3); PLATELET COUNT 277 K/mm3 (130-400); RED BLOOD COUNT 4.97 M/mm3 (4.10-5.30); REDCELL DISTRIBUTION WIDTH-CV 12.9 % (11.5-14.5)
[2020-11-02 02:24] LABS: CALCIUM 9.4 mg/dL (8.4-10.2); CREATININE, serum 0.99 (0.52-1.25); POTASSIUM 4.5 mmol/L (3.4-5.0)
[2020-11-02] MEDS ORDERED: PREDNISONE20 MG PO (02:54)
[2020-11-02 03:27] VITALS: BP 127/87; PULSE 91
== END 2020-11-02 03:27 | disposition home or self-care (01) ==
LOC: COL.ER 01:38
PROVIDERS: Emergency Medicine
DX: T78.40XA Allergy, unspecified, initial encounter (principal); J45.909 Unspecified asthma, uncomplicated; F32.9 Major depressive disorder, single episode, unspecified; F41.9 Anxiety disorder, unspecified; F90.9 Attention-deficit hyperactivity disorder, unspecified type; F43.10 Post-traumatic stress disorder, unspecified; Z79.899 Other long term (current) drug therapy
CPT/HCPCS: J1200; J2930; J7030

== ENCOUNTER 2021-01-06 15:35 | Emergency (ER) | payer MEDICAID ==
[~2021-01-06] VITALS: Ht 175.3 cm; Wt 122.7 kg
[2021-01-06 19:06] VITALS: BP 109/77; PULSE 78; TEMP 98.8
== END 2021-01-06 19:06 | disposition home or self-care (01) ==
LOC: COL.ER 15:35
DX: S06.0X1A Concussion with loss of consciousness of 30 minutes or less, initial encounter (principal); F32.A Depression, unspecified; F90.9 Attention-deficit hyperactivity disorder, unspecified type; G47.00 Insomnia, unspecified; Z79.899 Other long term (current) drug therapy; Y04.0XXA Assault by unarmed brawl or fight, initial encounter

== ENCOUNTER 2021-01-26 02:00 | Emergency (ER) | payer MEDICAID ==
[2021-01-26 02:08] VITALS: TEMP 98.5
[2021-01-26 03:15] VITALS: BP 135/74; PULSE 84
== END 2021-01-26 03:15 | disposition home or self-care (01) ==
LOC: COL.ER 02:00
DX: S69.91XA Unspecified injury of right wrist, hand and finger(s), initial encounter (principal); R51.9 Headache, unspecified; F41.9 Anxiety disorder, unspecified; F32.A Depression, unspecified; F43.10 Post-traumatic stress disorder, unspecified; F90.9 Attention-deficit hyperactivity disorder, unspecified type; Z79.899 Other long term (current) drug therapy; Y09 Assault by unspecified means
CPT/HCPCS: J1885; J3030

== ENCOUNTER 2021-04-08 22:45 | Emergency (ER) | payer MEDICAID ==
[~2021-04-08] VITALS: Ht 167.6 cm; Wt 113.6 kg
[2021-04-09 00:24] VITALS: TEMP 98.3
[2021-04-09 00:58] LABS: STREP SCREEN NEGATIVE
[2021-04-09] MEDS ORDERED: MAGIC MOUTH PO (01:09)
[2021-04-09 01:39] VITALS: BP 128/88; PULSE 89
== END 2021-04-09 01:41 | disposition home or self-care (01) ==
LOC: COL.ER 22:45
PROVIDERS: Nurse Practitioner Primary Care
DX: J06.9 Acute upper respiratory infection, unspecified (principal); F41.9 Anxiety disorder, unspecified; F32.A Depression, unspecified; F90.9 Attention-deficit hyperactivity disorder, unspecified type; Z20.822 Contact with and (suspected) exposure to COVID-19; Z79.899 Other long term (current) drug therapy